=== PATIENT | male | born 1995 | race Caucasian/White ===

== ENCOUNTER 2017-05-27 23:47 | Emergency (ER) | payer BC ==
[~2017-05-27] VITALS: Ht 177.8 cm; Wt 79.5 kg
[2017-05-27 23:54] VITALS: BP 125/61; TEMP 98.5
[2017-05-28 03:21] VITALS: PULSE 78
== END 2017-05-28 03:23 | disposition home or self-care (01) ==
LOC: COL.ER 23:47
DX: S01.81XA Laceration without foreign body of other part of head, initial encounter (principal); F17.200 Nicotine dependence, unspecified, uncomplicated; W22.03XA Walked into furniture, initial encounter; Y92.009 Unspecified place in unspecified non-institutional (private) residence as the place of occurrence of the external cause; Y93.72 Activity, wrestling

== ENCOUNTER → 2019-01-02 | Outpatient (CLI) | payer BC | LOC: ZCOL.LAB 15:35 | DX: Z01.812 Encounter for preprocedural laboratory examination (principal); Z86.14 Personal history of Methicillin resistant Staphylococcus aureus infection ==